=== PATIENT | female | born 1940 | race Hispanic/Latino ===

== ENCOUNTER 2020-07-21 17:23 | Observation (INO) | payer MEDICARE ==
[2020-07-21 18:01] VITALS: BMI 26.3
[2020-07-21] MEDS ORDERED: Lorazepam 1 MG TAB PO PRN (21:35)
[2020-07-21] MEDS ORDERED: Acetaminophen 325 MG TAB PO PRN (21:37)
[2020-07-21] MEDS ORDERED: Ondansetron PF 4 MG/2 ML Vial IVP PRN (21:37)
[2020-07-21] MEDS ORDERED: Atorvastatin Calcium 10 MG TAB PO SCH (21:45)
[2020-07-21] MEDS ORDERED: traZODone HCl 50 MG TAB PO SCH (22:00)
[2020-07-21 22:21] LABS: Anion Gap 13 mmol/L (10-20); BUN (Urea Nitrogen) 4 mg/dL (9.8-20.1); Calc. Creatinine Clearance 69 mL/min (70-130); Calcium 8.5 mg/dL (7.8-10.44); Carbon Dioxide 25 mmol/L (23-31); Chloride 107 mmol/L (98-107); Glucose 132 mg/dL (83-110); Sodium 142 mmol/L (136-145)
[2020-07-21 22:23] LABS: Potassium 2.7 mmol/L (3.5-5.1)
[2020-07-21] MEDS ORDERED: Electrolyte Replacement Protocol 1 EACH FS PRN (22:45)
[2020-07-22] MEDS: Potassium Chloride 20 MEQ TAB PO SCH ×2 (00:26→03:46)
[2020-07-22 05:21] LABS: #Eosinphils 0.1 thou/uL (0.0-0.7); #Lymphocytes 1.7 thou/uL (1.20-3.40); #Monocytes 0.4 thou/uL (0.11-0.59); #Neutrophils 1.8 thou/uL (1.40-6.50); %Basophils 0.9 % (0.0-1.0); %Eosinophils 2.6 % (0.0-10.0); %Lymphocytes 41.4 % (21.0-51.0); %Neutrophils 44.1 % (42.0-75.0); Hemoglobin 12.1 g/dL (12.0-16.0); Mean Corpuscular HGB CONC 33.8 g/dL (32.0-36.0); Mean Corpuscular Hemoglobin 32.2 pg (27.0-31.0); Mean Corpuscular Volume 95.3 fL (78.0-98.0); Mean Platelet Volume 7.6 fL (7.4-10.4); Platelet Count 171 thou/uL (130-400); RBC Distribution Width 13.9 % (11.5-14.5); Red Blood Cell (RBC) Count 3.75 mill/uL (4.20-5.40)
[2020-07-22 05:40] LABS: Anion Gap 8 mmol/L (10-20); BUN (Urea Nitrogen) Less than 4 mg/dL (9.8-20.1); Calc. Creatinine Clearance 76 mL/min (70-130); Calcium 8.5 mg/dL (7.8-10.44); Carbon Dioxide 28 mmol/L (23-31); Chloride 109 mmol/L (98-107); Glucose 102 mg/dL (83-110); Potassium 3.3 mmol/L (3.5-5.1); Sodium 142 mmol/L (136-145)
[2020-07-22] MEDS ORDERED: Levothyroxine Sodium 75 MCG TAB PO SCH (06:00)
[2020-07-22] MEDS: Sucralfate 1 GM TAB PO SCH ×2 (07:30→11:59)
[2020-07-22 07:50] VITALS: TEMP 98.5
[2020-07-22] MEDS ORDERED: Bupropion 150 MG SR TAB PO SCH (09:00)
[2020-07-22] MEDS ORDERED: Amlodipine 10 MG TAB PO SCH (09:00)
[2020-07-22] MEDS ORDERED: Pioglitazone HCl 15 MG TAB PO SCH (09:00)
[2020-07-22] MEDS ORDERED: Cholecalciferol 1,000 UNITS (25 MCG) TAB PO SCH (09:00)
[2020-07-22] MEDS ORDERED: Pantoprazole 40 MG GRANULES PACKET PO SCH (09:00)
[2020-07-22] MEDS ORDERED: Lisinopril 20 MG TAB PO SCH (09:00)
[2020-07-22 10:04] VITALS: BP 130/84
[2020-07-22] MEDS ORDERED: Potassium Chloride 20 MEQ TAB PO SCH (10:30)
[2020-07-22 11:49] LABS: SARS-CoV-2 PCR by NAA Not Detected (NotDetected)
[2020-07-22] MEDS ORDERED: Atorvastatin Calcium 10 MG TAB PO SCH (21:00)
== END 2020-07-22 13:47 | disposition home or self-care (01) ==
LOC: 2SW 17:23 → INTOOBSV 17:23
PROVIDERS: ADMIT Internal Medicine; ATTEND Internal Medicine
DX: E87.6 Hypokalemia (principal); R53.1 Weakness; K58.0 Irritable bowel syndrome with diarrhea; E03.9 Hypothyroidism, unspecified; K21.9 Gastro-esophageal reflux disease without esophagitis; I10 Essential (primary) hypertension; E78.5 Hyperlipidemia, unspecified; E11.9 Type 2 diabetes mellitus without complications; G47.00 Insomnia, unspecified; Z66 Do not resuscitate; Z79.84 Long term (current) use of oral hypoglycemic drugs; Z79.899 Other long term (current) drug therapy; Z88.0 Allergy status to penicillin; Z88.5 Allergy status to narcotic agent; Z91.010 Allergy to peanuts; Z20.822 Contact with and (suspected) exposure to COVID-19
CPT/HCPCS: 80048 ×2; 85025; 97139; U0003; U0005; 36415; 96374; G0378; J2405

== ENCOUNTER 2020-08-03 16:13 | Observation (INO) | payer MEDICARE ==
[2020-08-03 18:42] VITALS: BMI 27.6
[2020-08-03 20:24] LABS: Anion Gap 16 mmol/L (10-20); BUN (Urea Nitrogen) 5 mg/dL (9.8-20.1); Calc. Creatinine Clearance 61 mL/min (70-130); Calcium 9.3 mg/dL (7.8-10.44); Carbon Dioxide 18 mmol/L (23-31); Chloride 108 mmol/L (98-107); Glucose 164 mg/dL (83-110); Sodium 139 mmol/L (136-145)
[2020-08-03 20:29] LABS: Potassium 2.7 mmol/L (3.5-5.1)
[2020-08-03] MEDS: Acetaminophen 325 MG TAB PO PRN (20:40)
[2020-08-03] MEDS ORDERED: Electrolyte Replacement Protocol 1 EACH FS SCH (20:45)
[2020-08-03] MEDS ORDERED: Bupropion 150 MG SR TAB PO SCH (21:00)
[2020-08-03] MEDS ORDERED: Atorvastatin Calcium 20 MG TAB PO SCH (21:00)
[2020-08-03] MEDS: Lorazepam 1 MG TAB PO SCH (21:25)
[2020-08-03] MEDS ORDERED: Potassium Chloride 20 MEQ TAB PO SCH (23:30)
[2020-08-03] MEDS: ALPRAZolam 0.25 MG TAB PO PRN (23:35)
[2020-08-03] MEDS: Potassium Chloride 10 MEQ in Premix Bag 1 BAG IVPB SCH (23:58)
[2020-08-04] MEDS: Potassium Chloride 10 MEQ in Premix Bag 1 BAG IVPB SCH (00:47)
[2020-08-04] MEDS ORDERED: Potassium Chloride 10 MEQ in Premix Bag 1 BAG IVPB SCH (01:00)
[2020-08-04 04:33] LABS: #Eosinphils 0.1 thou/uL (0.0-0.7); #Lymphocytes 1.9 thou/uL (1.20-3.40); #Monocytes 0.6 thou/uL (0.11-0.59); #Neutrophils 2.4 thou/uL (1.40-6.50); %Basophils 0.9 % (0.0-1.0); %Eosinophils 1.9 % (0.0-10.0); %Lymphocytes 37.8 % (21.0-51.0); %Neutrophils 48.4 % (42.0-75.0); Hemoglobin 12.3 g/dL (12.0-16.0); Mean Corpuscular HGB CONC 33.8 g/dL (32.0-36.0); Mean Corpuscular Hemoglobin 32.2 pg (27.0-31.0); Mean Corpuscular Volume 95.4 fL (78.0-98.0); Mean Platelet Volume 7.8 fL (7.4-10.4); Platelet Count 168 thou/uL (130-400); RBC Distribution Width 13.9 % (11.5-14.5); Red Blood Cell (RBC) Count 3.81 mill/uL (4.20-5.40)
[2020-08-04 04:51] LABS: Anion Gap 9 mmol/L (10-20); BUN (Urea Nitrogen) 4 mg/dL (9.8-20.1); Calc. Creatinine Clearance 68 mL/min (70-130); Calcium 8.9 mg/dL (7.8-10.44); Carbon Dioxide 22 mmol/L (23-31); Chloride 109 mmol/L (98-107); Glucose 106 mg/dL (83-110); Potassium 3.4 mmol/L (3.5-5.1); Sodium 137 mmol/L (136-145)
[2020-08-04] MEDS: Atorvastatin Calcium 20 MG TAB PO SCH (05:06)
[2020-08-04] MEDS: Amlodipine 10 MG TAB PO SCH (05:06)
[2020-08-04] MEDS: Levothyroxine Sodium 75 MCG TAB PO SCH (05:06)
[2020-08-04] MEDS: Cholecalciferol 1,000 UNITS (25 MCG) TAB PO SCH (05:06)
[2020-08-04] MEDS ORDERED: Potassium Chloride 20 MEQ TAB PO SCH ×2 (06:30→09:45)
[2020-08-04] MEDS: busPIRone HCl 10 MG TAB PO SCH ×2 (09:36→14:29)
[2020-08-04] MEDS: Pantoprazole 40 MG GRANULES PACKET PO SCH (09:36)
[2020-08-04] MEDS: Pioglitazone HCl 15 MG TAB PO SCH (09:36)
[2020-08-04] MEDS: Lisinopril 20 MG TAB PO SCH (09:37)
[2020-08-04] MEDS: Bupropion 150 MG SR TAB PO SCH (10:28)
[2020-08-04] MEDS: ALPRAZolam 0.25 MG TAB PO PRN ×2 (11:30→20:03)
[2020-08-04] MEDS: Acetaminophen 325 MG TAB PO PRN ×2 (14:29→20:03)
[2020-08-04 14:43] LABS: Anion Gap 15 mmol/L (10-20); BUN (Urea Nitrogen) 4 mg/dL (9.8-20.1); Calc. Creatinine Clearance 60 mL/min (70-130); Calcium 9.4 mg/dL (7.8-10.44); Carbon Dioxide 18 mmol/L (23-31); Chloride 110 mmol/L (98-107); Glucose 141 mg/dL (83-110); Magnesium 1.9 mg/dL (1.6-2.6); Potassium 4.4 mmol/L (3.5-5.1); Sodium 139 mmol/L (136-145)
[2020-08-04] MEDS: Lorazepam 1 MG TAB PO SCH (20:03)
[2020-08-04] MEDS: Calcium Carbonate 500 MG ChewTAB PO PRN (23:36)
[2020-08-05] MEDS: Acetaminophen 325 MG TAB PO PRN ×4 (03:30→20:56)
[2020-08-05] MEDS: Levothyroxine Sodium 75 MCG TAB PO SCH (05:15)
[2020-08-05] MEDS: Atorvastatin Calcium 20 MG TAB PO SCH (05:15)
[2020-08-05] MEDS: Cholecalciferol 1,000 UNITS (25 MCG) TAB PO SCH (05:15)
[2020-08-05] MEDS: Amlodipine 10 MG TAB PO SCH (05:15)
[2020-08-05 06:01] LABS: #Eosinphils 0.1 thou/uL (0.0-0.7); #Lymphocytes 1.9 thou/uL (1.20-3.40); #Monocytes 0.5 thou/uL (0.11-0.59); #Neutrophils 2.3 thou/uL (1.40-6.50); %Basophils 0.6 % (0.0-1.0); %Eosinophils 1.7 % (0.0-10.0); %Lymphocytes 39.5 % (21.0-51.0); %Monocytes 10.3 % (0.0-10.0); %Neutrophils 47.8 % (42.0-75.0); Hemoglobin 12.7 g/dL (12.0-16.0); Mean Corpuscular HGB CONC 33.8 g/dL (32.0-36.0); Mean Corpuscular Hemoglobin 32.6 pg (27.0-31.0); Mean Corpuscular Volume 96.5 fL (78.0-98.0); Mean Platelet Volume 7.8 fL (7.4-10.4); Platelet Count 163 thou/uL (130-400); Red Blood Cell (RBC) Count 3.89 mill/uL (4.20-5.40); White Blood Cell (WBC) Count 4.8 thou/uL (4.8-10.8)
[2020-08-05 06:24] LABS: Anion Gap 11 mmol/L (10-20); BUN (Urea Nitrogen) 5 mg/dL (9.8-20.1); Calc. Creatinine Clearance 59 mL/min (70-130); Calcium 9.1 mg/dL (7.8-10.44); Carbon Dioxide 22 mmol/L (23-31); Chloride 107 mmol/L (98-107); Glucose 98 mg/dL (83-110); Potassium 3.8 mmol/L (3.5-5.1); Sodium 136 mmol/L (136-145)
[2020-08-05] MEDS ORDERED: Magnesium 2 GM/50 ML 2 GM in Premix Bag 1 BAG IVPB SCH (06:45)
[2020-08-05] MEDS: busPIRone HCl 10 MG TAB PO SCH ×2 (08:58→14:42)
[2020-08-05] MEDS: Bupropion 150 MG SR TAB PO SCH (08:58)
[2020-08-05] MEDS: Lisinopril 20 MG TAB PO SCH (08:58)
[2020-08-05] MEDS: Pioglitazone HCl 15 MG TAB PO SCH (08:58)
[2020-08-05] MEDS: Pantoprazole 40 MG GRANULES PACKET PO SCH (08:58)
[2020-08-05] MEDS ORDERED: Cyclobenzaprine 10 MG TAB PO SCH (14:30)
[2020-08-05] MEDS: ALPRAZolam 0.25 MG TAB PO PRN (17:26)
[2020-08-05] MEDS: Lorazepam 1 MG TAB PO SCH (20:56)
[2020-08-06] MEDS: Cholecalciferol 1,000 UNITS (25 MCG) TAB PO SCH (05:59)
[2020-08-06] MEDS: Levothyroxine Sodium 75 MCG TAB PO SCH (05:59)
[2020-08-06] MEDS: Atorvastatin Calcium 20 MG TAB PO SCH (05:59)
[2020-08-06] MEDS: Amlodipine 10 MG TAB PO SCH (05:59)
[2020-08-06] MEDS: Bupropion 150 MG SR TAB PO SCH (08:00)
[2020-08-06] MEDS: Pioglitazone HCl 15 MG TAB PO SCH (08:00)
[2020-08-06] MEDS: busPIRone HCl 10 MG TAB PO SCH ×2 (08:00→13:05)
[2020-08-06] MEDS: Lisinopril 20 MG TAB PO SCH (08:01)
[2020-08-06 10:13] LABS: SARS-CoV-2 NAA Rapid Test Not Detected (NotDetected)
[2020-08-06 11:52] VITALS: BP 139/66; TEMP 97.9
[2020-08-06] MEDS: Calcium Carbonate 500 MG ChewTAB PO PRN (13:05)
[2020-08-06] MEDS: ALPRAZolam 0.25 MG TAB PO PRN (13:56)
== END 2020-08-06 17:07 | disposition home or self-care (01) ==
LOC: 2NO 18:11 → T4-B 08-05 20:51
PROVIDERS: ADMIT Internal Medicine; ATTEND Internal Medicine
DX: E87.6 Hypokalemia (principal); R45.851 Suicidal ideations; R94.31 Abnormal electrocardiogram [ECG] [EKG]; E11.9 Type 2 diabetes mellitus without complications; E03.9 Hypothyroidism, unspecified; I10 Essential (primary) hypertension; J45.909 Unspecified asthma, uncomplicated; K21.9 Gastro-esophageal reflux disease without esophagitis; E78.5 Hyperlipidemia, unspecified; Z79.84 Long term (current) use of oral hypoglycemic drugs; Z79.899 Other long term (current) drug therapy; Z88.0 Allergy status to penicillin
CPT/HCPCS: 80048 ×4; 82962 ×3; 83735 ×2; 85025 ×2; 93005; U0002; U0005; 36415; 36416; 93010; 96374; 96375; G0378; J3475; J3480

== ENCOUNTER 2021-09-29 17:51 | Emergency (ER) | payer MEDICARE ==
[2021-09-29 19:48] LABS: #Lymphocytes 1.3 thou/uL (1.20-3.40); #Monocytes 0.6 thou/uL (0.11-0.59); #Neutrophils 5.1 thou/uL (1.40-6.50); %Basophils 0.3 % (0.0-1.0); %Eosinophils 0.7 % (0.0-10.0); %Lymphocytes 17.9 % (21.0-51.0); %Monocytes 8.6 % (0.0-10.0); %Neutrophils 72.5 % (42.0-75.0); Hemoglobin 13.1 g/dL (12.0-16.0); Mean Corpuscular HGB CONC 34.1 g/dL (32.0-36.0); Mean Corpuscular Hemoglobin 31.8 pg (27.0-31.0); Mean Platelet Volume 6.4 fL (7.4-10.4); Platelet Count 227 thou/uL (130-400); RBC Distribution Width 13.2 % (11.5-14.5); Red Blood Cell (RBC) Count 4.14 mill/uL (4.20-5.40)
[2021-09-29 20:09] LABS: ALT (SGPT) 24 U/L (8-55); AST (SGOT) 24 U/L (5-34); Albumin 4.3 g/dL (3.4-4.8); Alkaline Phosphatase 86 U/L (40-110); Anion Gap 15 mmol/L (10-20); BUN (Urea Nitrogen) 13 mg/dL (9.8-20.1); Bilirubin, Total 0.4 mg/dL (0.2-1.2); Calc. Creatinine Clearance 0 mL/min (70-130); Calcium 9.3 mg/dL (7.8-10.44); Carbon Dioxide 23 mmol/L (23-31); Chloride 94 mmol/L (98-107); Estimated GFR 88; Globulin 2.7 g/dL (2.4-3.5); Glucose 124 mg/dL (83-110); Potassium 4.5 mmol/L (3.5-5.1); Sodium 127 mmol/L (136-145)
[2021-09-29 20:23] LABS: Bilirubin Negative (Negative); Blood, Urine Negative (Negative); Clarity Clear (Clear); Glucose, Urine (Dipstick) Normal (Negative); Ketone, Urine Negative (Negative); Leukocyte Negative Leu/uL (Negative); Nitrite Negative (Negative); Protein, Urine (Dipstick) Negative (Neg-Trace); Urobilinogen Normal mg/dL (Less than 2); pH, Urine 7.5 (5.0-9.0)
== END 2021-09-29 21:14 | disposition home or self-care (01) ==
LOC: ERS 17:51
DX: E87.1 Hypo-osmolality and hyponatremia (principal); R53.1 Weakness; E03.9 Hypothyroidism, unspecified; E78.2 Mixed hyperlipidemia; I10 Essential (primary) hypertension
CPT/HCPCS: 36415; 70450; 80053; 81003; 83735; 84443; 84484; 85025

== ENCOUNTER 2022-07-26 11:19 | Inpatient (IN) | payer MEDICARE, OTHER ==
[2022-07-26 13:07] LABS: #Eosinphils 0.2 thou/uL (0.0-0.7); #Monocytes 0.3 thou/uL (0.11-0.59); #Neutrophils 3.5 thou/uL (1.40-6.50); %Basophils 0.8 % (0.0-1.0); %Eosinophils 3.2 % (0.0-10.0); %Lymphocytes 23.9 % (21.0-51.0); %Neutrophils 65.3 % (42.0-75.0); Hemoglobin 15.4 g/dL (12.0-16.0); Mean Corpuscular HGB CONC 34.8 g/dL (32.0-36.0); Mean Corpuscular Hemoglobin 32.1 pg (27.0-31.0); Mean Corpuscular Volume 92.3 fl (78.0-98.0); Mean Platelet Volume 9.2 fL (7.4-10.4); Platelet Count 190 10x3/uL (130-400); RBC Distribution Width 13.2 % (11.5-14.5); White Blood Cell (WBC) Count 5.3 10x3/uL (4.8-10.8)
[2022-07-26 13:34] LABS: ALT (SGPT) 16 U/L (8-55); AST (SGOT) 20 U/L (5-34); Albumin 4.3 g/dL (3.4-4.8); Alkaline Phosphatase 62 U/L (40-110); Anion Gap 13 mmol/L (10-20); BUN (Urea Nitrogen) 9 mg/dL (9.8-20.1); Bilirubin, Total 0.5 mg/dL (0.2-1.2); CK (CPK) 46 U/L (29-168); Calc. Creatinine Clearance 0 mL/min (70-130); Calcium 9.3 mg/dL (7.8-10.44); Carbon Dioxide 22 mmol/L (23-31); Chloride 103 mmol/L (98-107); Estimated GFR 78; Globulin 2.9 g/dL (2.4-3.5); Glucose 109 mg/dL (83-110); Lipase 22 U/L (8-78); Magnesium 2.2 mg/dL (1.6-2.6); Protein, Total 7.2 g/dL (5.8-8.1); Sodium 134 mmol/L (136-145)
[2022-07-26] MEDS ORDERED: Ketorolac Tromethamine 30 MG/ML VIAL ONE (15:50)
[2022-07-26 17:01] LABS: Bacteria/HPF 1+ HPF (None Seen); Bilirubin Negative (Negative); Blood, Urine Negative (Negative); CAUTI Indications for Culture Dysuria,urgency,freq; Clarity Clear (Clear); Glucose, Urine (Dipstick) Normal (Negative); Ketone, Urine Negative (Negative); Leukocyte 25 Leu/uL (Negative); Nitrite Negative (Negative); Protein, Urine (Dipstick) Negative (Neg-Trace); RBC/HPF 0-3 HPF (0-3); Specific Gravity, Urine 1.005 (1.002-1.036); Squamous Epithelial 0-3 HPF (0-3); Urobilinogen Normal mg/dL (Less than 2); WBC/HPF 0-3 HPF (0-3); pH, Urine 7.5 (5.0-9.0)
[2022-07-26 17:03] LABS: Urine Culture Reflex No No
[2022-07-26 18:29] LABS: SARS-CoV-2 NAA Rapid Test Not Detected (NotDetected)
[2022-07-26 20:45] VITALS: BMI 28.9
[2022-07-26] MEDS ORDERED: Senokot S 8.6-50 MG TAB PO PRN (21:22)
[2022-07-26] MEDS ORDERED: Calcium Carbonate 500 MG ChewTAB PO PRN (21:22)
[2022-07-26] MEDS ORDERED: Ondansetron ODT 4 MG TAB PO PRN (21:22)
[2022-07-26] MEDS ORDERED: Electrolyte Replacement Protocol 1 EACH FS PRN (21:23)
[2022-07-27] MEDS: Atorvastatin Calcium 10 MG TAB PO SCH (06:09)
[2022-07-27] MEDS: Levothyroxine Sodium 25 MCG TAB PO SCH (06:09)
[2022-07-27] MEDS: Amlodipine 5 MG TAB PO SCH (06:09)
[2022-07-27 06:24] LABS: #Eosinphils 0.4 thou/uL (0.0-0.7); #Monocytes 0.6 thou/uL (0.11-0.59); #Neutrophils 3.6 thou/uL (1.40-6.50); %Basophils 0.6 % (0.0-1.0); %Eosinophils 6.3 % (0.0-10.0); %Lymphocytes 26.6 % (21.0-51.0); %Monocytes 8.9 % (0.0-10.0); %Neutrophils 57.1 % (42.0-75.0); Hemoglobin 14.3 g/dL (12.0-16.0); Mean Corpuscular HGB CONC 34.6 g/dL (32.0-36.0); Mean Corpuscular Volume 92.4 fl (78.0-98.0); Mean Platelet Volume 9.4 fL (7.4-10.4); Platelet Count 187 10x3/uL (130-400); RBC Distribution Width 13.2 % (11.5-14.5); Red Blood Cell (RBC) Count 4.47 mill/uL (4.20-5.40); White Blood Cell (WBC) Count 6.3 10x3/uL (4.8-10.8)
[2022-07-27 06:34] LABS: Anion Gap 12 mmol/L (10-20); BUN (Urea Nitrogen) 7 mg/dL (9.8-20.1); Calc. Creatinine Clearance 72 mL/min (70-130); Calcium 8.9 mg/dL (7.8-10.44); Carbon Dioxide 23 mmol/L (23-31); Chloride 105 mmol/L (98-107); Estimated GFR 88; Glucose 99 mg/dL (83-110); Potassium 3.4 mmol/L (3.5-5.1); Sodium 137 mmol/L (136-145)
[2022-07-27] MEDS ORDERED: Potassium Chloride 20 MEQ TAB PO SCH (08:00)
[2022-07-27] MEDS ORDERED: Non-Formulary Item 1 EACH (Clonazepam [Clonazepam] 0.25 MG Tab.Rapdis) PO SCH (09:00)
[2022-07-27] MEDS ORDERED: clonazePAM 0.5 MG TAB PO SCH ×2 (09:00)
[2022-07-27] MEDS ORDERED: Famotidine 20 MG TAB PO SCH (09:00)
[2022-07-27] MEDS: Mirtazapine 15 MG TAB PO SCH ×2 (09:22→20:04)
[2022-07-27] MEDS: Lisinopril 20 MG TAB PO SCH (09:22)
[2022-07-27] MEDS: Sertraline 100 MG TAB PO SCH (09:24)
[2022-07-27] MEDS: Famotidine 20 MG TAB PO SCH (09:24)
[2022-07-27] MEDS: Gabapentin 300 MG CAP PO SCH ×2 (09:24→20:04)
[2022-07-27] MEDS: Acetaminophen 325 MG TAB PO PRN ×2 (09:26→20:08)
[2022-07-27] MEDS: Cholecalciferol 1,000 UNITS (25 MCG) TAB PO SCH (09:26)
[2022-07-27] MEDS: Sodium Chloride 1 GM TAB PO SCH ×2 (09:26→20:23)
[2022-07-27] MEDS: Cefdinir 300 MG CAP PO SCH (20:04)
[2022-07-27] MEDS: clonazePAM 0.5 MG TAB PO SCH (20:05)
[2022-07-27] MEDS ORDERED: Nitrofurantoin Monohyd/M-Cryst 100 MG CAP PO SCH (21:00)
[2022-07-28 05:15] LABS: #Basophils 0.1 thou/uL (0.0-0.2); #Eosinphils 0.4 thou/uL (0.0-0.7); #Monocytes 0.5 thou/uL (0.11-0.59); #Neutrophils 3.7 thou/uL (1.40-6.50); %Basophils 0.8 % (0.0-1.0); %Eosinophils 5.7 % (0.0-10.0); %Lymphocytes 29.8 % (21.0-51.0); %Monocytes 7.3 % (0.0-10.0); %Neutrophils 55.9 % (42.0-75.0); Hemoglobin 14.2 g/dL (12.0-16.0); Mean Corpuscular HGB CONC 35.1 g/dL (32.0-36.0); Mean Corpuscular Hemoglobin 32.6 pg (27.0-31.0); Mean Corpuscular Volume 92.9 fl (78.0-98.0); Platelet Count 191 10x3/uL (130-400); RBC Distribution Width 13.2 % (11.5-14.5); Red Blood Cell (RBC) Count 4.35 mill/uL (4.20-5.40); White Blood Cell (WBC) Count 6.6 10x3/uL (4.8-10.8)
[2022-07-28 05:41] LABS: Anion Gap 11 mmol/L (10-20); BUN (Urea Nitrogen) 11 mg/dL (9.8-20.1); Calc. Creatinine Clearance 63 mL/min (70-130); Carbon Dioxide 23 mmol/L (23-31); Chloride 104 mmol/L (98-107); Estimated GFR 82; Glucose 98 mg/dL (83-110); Potassium 4.1 mmol/L (3.5-5.1); Sodium 134 mmol/L (136-145)
[2022-07-28] MEDS: Amlodipine 5 MG TAB PO SCH (05:46)
[2022-07-28] MEDS: Atorvastatin Calcium 10 MG TAB PO SCH (05:47)
[2022-07-28] MEDS: Levothyroxine Sodium 25 MCG TAB PO SCH (05:47)
[2022-07-28] MEDS: Cefdinir 300 MG CAP PO SCH (08:24)
[2022-07-28] MEDS: Cholecalciferol 1,000 UNITS (25 MCG) TAB PO SCH (08:24)
[2022-07-28] MEDS: Gabapentin 300 MG CAP PO SCH (08:24)
[2022-07-28] MEDS: Sertraline 100 MG TAB PO SCH (08:25)
[2022-07-28] MEDS: Mirtazapine 15 MG TAB PO SCH (08:25)
[2022-07-28] MEDS: clonazePAM 0.5 MG TAB PO SCH ×2 (08:25→15:02)
[2022-07-28] MEDS: Lisinopril 20 MG TAB PO SCH (08:25)
[2022-07-28] MEDS: Famotidine 20 MG TAB PO SCH (08:25)
[2022-07-28] MEDS: Sodium Chloride 1 GM TAB PO SCH (08:26)
[2022-07-28] MEDS: Acetaminophen 325 MG TAB PO PRN ×2 (10:45→16:52)
[2022-07-28 16:07] VITALS: BP 145/64; TEMP 97
== END 2022-07-28 18:56 | disposition home health service (06) | DRG 312 ==
LOC: ERS 11:19 → NEURO 18:53
PROVIDERS: ADMIT Family Medicine; ATTEND Internal Medicine
DX: R55 Syncope and collapse (principal); N39.0 Urinary tract infection, site not specified; E03.9 Hypothyroidism, unspecified; E78.00 Pure hypercholesterolemia, unspecified; I10 Essential (primary) hypertension; K21.9 Gastro-esophageal reflux disease without esophagitis; F32.A Depression, unspecified; F41.9 Anxiety disorder, unspecified; M19.90 Unspecified osteoarthritis, unspecified site; E11.9 Type 2 diabetes mellitus without complications; K58.0 Irritable bowel syndrome with diarrhea; B96.20 Unspecified Escherichia coli [E. coli] as the cause of diseases classified elsewhere; Z96.651 Presence of right artificial knee joint; Z79.4 Long term (current) use of insulin; Z90.49 Acquired absence of other specified parts of digestive tract; Z90.710 Acquired absence of both cervix and uterus; Z98.890 Other specified postprocedural states; Z88.0 Allergy status to penicillin; Z20.822 Contact with and (suspected) exposure to COVID-19; Z79.899 Other long term (current) drug therapy; J45.909 Unspecified asthma, uncomplicated; Z90.89 Acquired absence of other organs; Z98.49 Cataract extraction status, unspecified eye; Z88.1 Allergy status to other antibiotic agents; Z91.010 Allergy to peanuts; Z88.6 Allergy status to analgesic agent
CPT/HCPCS: 36415; 36416; 51701; 70450; 70551; 71045; 72125; 72128; 72131; 80048; 80053; 81001; 82550; 83690; 83735; 83880; 84484; 85025; 87077; 87086; 87186; 93005; 93306; 93880; 95712; 95819; 95957; 96361; 96374; J1885

== ENCOUNTER 2023-12-31 08:48 | Outpatient (CLI) | payer MEDICARE | END 2023-12-31 08:49 | disposition home or self-care (01) | LOC: ULT 08:48 | PROVIDERS: ATTEND Nurse Practitioner Family | DX: R10.11 Right upper quadrant pain (principal) | CPT/HCPCS: 76705 ==